=== PATIENT | male | born 1970 | race Caucasian/White ===

== ENCOUNTER → 2017-06-20 | Outpatient (CLI) | payer BC ==
[2017-06-20 10:45] LABS: Basophils % (A) 0 %; CH 31.5; CHCM 34.1; Eosinophils # (A) 0.2 k/uL (0-0.7); Eosinophils % (A) 5 %; HCT 42.5 % (39.0-53.0); HDW 2.57; HGB 14.1 gm/dL (13.0-17.5); Luc # (Auto) 0.11; Luc % (Auto) 3; Lymphocytes # (A) 1.4 k/uL (1.0-4.8); Lymphocytes % (A) 32 %; MCH 30.8 pg (25.0-35.0); MCHC 33.2 g/dL (31.0-37.0); MCV 92.7 fL (80.0-100.0); Mean Platelet Volume 6.5; Monocytes # (A) 0.2 k/uL (0-1.0); Monocytes % (A) 5 %; Neutrophils # (A) 2.5 k/uL (1.3-7.7); Neutrophils % (A) 55 %; RBC 4.59 m/uL (4.30-5.90); WBC 4.5 k/uL (3.8-10.6); WBC (Perox) 4.73
[2017-06-20 10:58] LABS: Rheumatoid Factor, Qnt <9 IU/mL (<12)
[2017-06-20 10:59] LABS: C Reactive Protein <5.0 mg/L (<10.0); Uric Acid 6.8 mg/dL (3.5-8.5)
[2017-06-20 13:56] LABS: Erythrocyte Sedimentation Rate 6 mm/hr (0-15)
== END | disposition home or self-care (01) ==
LOC: LABWHC1 10:02
PROVIDERS: ATTEND Podiatrist Foot & Ankle Surgery
DX: D64.9 Anemia, unspecified (principal); M19.90 Unspecified osteoarthritis, unspecified site
CPT/HCPCS: 36415; 84550; 85025; 85652; 86038; 86140; 86431

== ENCOUNTER → 2019-02-26 | Outpatient (CLI) | payer BC ==
--- NOTE | 2019-02-26 11:23 | ECHOS ---
STRESS ECHOCARDIOGRAM DATE OF SERVICE: 02/26/2019 INDICATIONS: Chest pain. MEDICATIONS: BASELINE HEART RATE: 73 BASELINE BLOOD PRESSURE: 123/53 MAXIMUM HEART RATE: 158 MAXIMUM BLOOD PRESSURE: 177/88 85% MPHR: 145 100% MPHR: 170 METS: 11.7 MAXIMUM STAGE REACHED: IV TOTAL EXERCISE TIME: 10 minutes CLINICAL INFORMATION: STRESS DATA: Heart rate is 73, pressure is 123/53 mmHg. Baseline EKG showed sinus mechanism. The patient exercised on the treadmill according to Constantine protocol for 10 minutes and achieved 11.7 METs. The max heart rate was 158 which is about 93% of maximum predicted heart rate. Maximum blood pressure was 177/88 mmHg. Clinically, he did not have any chest pain and the EKG did not show any . ECHOCARDIOGRAM IMAGES: From parasternal long axis view, parasternal short axis view, apical 4 chamber and apical 2 chamber view were obtained as the baseline images, at the peak of the heart rate as well as recovery and the echocardiogram images showed good augmentation in the left ventricular systolic function without any evidence of wall motion abnormalities concerning for ischemia. CONCLUSION: 1. Excellent exercise tolerance. 2. Normal EKG in response to exercise. 3. Normal echocardiogram in response to exercise. 4. Essentially normal stress test for the patient. MMODL / IJN: [id number] /
== END | disposition home or self-care (01) ==
LOC: RADNMMAIN 09:44
PROVIDERS: ATTEND Family Medicine
DX: R07.9 Chest pain, unspecified (principal)
CPT/HCPCS: 93351

== ENCOUNTER 2019-04-19 10:45 | Day surgery (SDC) | payer BC ==
[2019-04-15 12:38] VITALS: BMI 31.3
--- NOTE | 2019-04-19 07:08 | P.GSHP ---
History of Present Illness H&P Date: 04/19/19 CHIEF COMPLAINT: Colon screen HISTORY OF PRESENT ILLNESS: The patient is a 48-year-old male who presents for colon screen. Lower endoscopy was offered for further evaluation and management. PAST MEDICAL HISTORY: Please see list. PAST SURGICAL HISTORY: Please see list. MEDICATIONS: Please see list. ALLERGIES: Please see list. SOCIAL HISTORY: No illicit drug use FAMILY HISTORY: No reports of Crohn disease or ulcerative colitis. REVIEW OF ORGAN SYSTEMS: CONSTITUTIONAL: No reports of fevers or chills. PHYSICAL EXAM: VITAL SIGNS: Stable GENERAL: Well-developed pleasant in no acute distress. HEENT: No scleral icterus. Extraocular movements grossly intact. Moist buccal mucosa. NECK: Supple without lymphadenopathy. CHEST: Unlabored respirations. Equal bilateral excursions. CARDIOVASCULAR: Regular rate and rhythm. Distal 2+ pulses. ABDOMEN: Soft, nontender, nondistended. MUSCULOSKELETAL: No clubbing, cyanosis, or edema. ASSESSMENT: 1. Colon screen. PLAN: 1. Recommend proceeding with a lower endoscopy Past Medical History Past Medical History: Hyperlipidemia Additional Past Medical History / Comment(s): RUQ pain History of Any Multi-Drug Resistant Organisms: None Reported Past Surgical History: Cholecystectomy, Hernia Repair, Orthopedic Surgery Additional Past Surgical History / Comment(s): cyst removed from foot, birthmark removed from right forearm, LEFT ARM SURGERY, MULTIPLE COLONOSCOPIES SINCE AGE 32, Past Anesthesia/Blood Transfusion Reactions: No Reported Reaction Smoking Status: Never smoker - Past Family History Father Family Medical History: Cancer Additional Family Medical History / Comment(s): COLON CANCER Medications and Allergies Home Medications Medication Instructions Recorded Confirmed Type Aspirin 325 mg PO DAILY 03/06/15 04/15/19 History Fenofibrate Nanocrystallized 145 mg PO DAILY 03/06/15 04/15/19 History [Tricor] Cholecalciferol (Vitamin D3) 3,000 unit PO DAILY 04/15/19 04/15/19 History [Vitamin D3] Niacin (Inositol Niacinate) 500 mg PO DAILY 04/15/19 04/15/19 History [Niacin 500 mg Capsule] [place]-3 Fatty Acids/Fish Oil [Fish 1 each PO DAILY 04/15/19 04/15/19 History Oil 1,000 mg Softgel] Allergies Allergy/AdvReac Type Severity Reaction Status Date / Time erythromycin base Allergy Rash/Hives Verified 04/15/19 12:17 meperidine HCl [From Demerol] Allergy headache Verified 04/15/19 12:17
[~2019-04-19 10:45] MED LIST: LACTATED RINGERS 1,000 ML IV SCH; LIDOCAINE 1% 20 ML VIAL (10MG/ML) FOR IV START INTRADERMA PRN
[2019-04-19 11:24] VITALS: RESP 16; TEMP 97.9
[2019-04-19] MEDS ORDERED: PROPOFOL 10 MG/ML 20 ML VIAL IV ONE (11:27)
[2019-04-19] MEDS ORDERED: LIDOCAINE 1% INJ 10MG/ML (20 ML MDV) ONE (11:27)
--- NOTE | 2019-04-19 11:54 | P.PCN ---
Date of Procedure: 04/19/19 Description of Procedure: PREOPERATIVE DIAGNOSIS: Colonoscopy screening. Family history of colon cancer Personal history of colon polyp POSTOPERATIVE DIAGNOSIS: Colonoscopy screening. Family history of colon cancer Personal history of colon polyp Descending colon polyp OPERATION: Colonoscopy to the ileocecal valve and appendiceal orifice. Colonoscopy with cold forceps biopsy 50 cm from anal verge, descending colon SURGEON: Smiley Hanks MD. ANESTHESIA: MAC. INDICATIONS: The patient is a 48-year-old male who presents for colonoscopy screening. Last colonoscopy over 5 years ago. He has personal history of colon polyps and family history of colon cancer and high-risk. Benefits and risks were described and informed consent was obtained. DESCRIPTION OF PROCEDURE: The patient had undergone Suprep. He had been brought into the operating room and laid in the left lateral decubitus position. The prostate was unremarkable. After adequate intravenous sedation, the rectum was examined with 2% lidocaine jelly. No external hemorrhoids were encountered. The rectal tone was within normal limits. No lesions were palpated in the rectal vault. An Olympus colonoscope was advanced until the ileocecal valve and appendiceal orifice were clearly viewed. The prep was excellent with clear visualization of the mucosal folds. The scope was removed with visualization of each mucosal fold. No scattered diverticulosis was encountered. Flat hyperplastic polyp 4 mm was addressed with cold forceps biopsy at 50 cm from the anal verge, descending colon. No evidence of focal colitis was found. Retroflexion of the scope demonstrated grade 1 internal hemorrhoids without active bleeding or inflamm ation. The colon was desufflated. The patient had tolerated the procedure well. Withdrawal time was over 6 minutes. FINDINGS: Aronchick preparation quality scale 1 (1-5) Internal hemorrhoids, grade 1 No external prolapsed hemorrhoids. No arteriovenous malformations. No focal colitis. Flat hyperplastic polyp 4 mm was addressed with cold forceps biopsy at 50 cm from the anal verge, descending colon. RECOMMENDATIONS: Repeat colonoscopy 3 years, 2021 for higher risk history Plan - Discharge Summary Discharge Rx Participant: Yes New Discharge Prescriptions: No Action Fenofibrate Nanocrystallized [Tricor] 145 mg PO DAILY Aspirin 325 mg PO DAILY [place]-3 Fatty Acids/Fish Oil [Fish Oil 1,000 mg Softgel] 1 each PO DAILY Niacin (Inositol Niacinate) [Niacin 500 mg Capsule] 500 mg PO DAILY Cholecalciferol (Vitamin D3) [Vitamin D3] 3,000 unit PO DAILY Discharge Medication List Aspirin 325 mg PO DAILY 03/06/15 [History] Fenofibrate Nanocrystallized [Tricor] 145 mg PO DAILY 03/06/15 [History] Cholecalciferol (Vitamin D3) [Vitamin D3] 3,000 unit PO DAILY 04/15/19 [History] Niacin (Inositol Niacinate) [Niacin 500 mg Capsule] 500 mg PO DAILY 04/15/19 [History] [place]-3 Fatty Acids/Fish Oil [Fish Oil 1,000 mg Softgel] 1 each PO DAILY 04/15/19 [History] Follow up Appointment(s)/Referral(s): Smiley Hanks MD [STAFF PHYSICIAN] - As Needed Patient Instructions/Handouts: Colorectal Polyps (DC) Activity/Diet/Wound Care/Special Instructions: Repeat colonoscopy 3 years, 2021. Start aspirin and fish oil in 3 days, April 22 Discharge Disposition: HOME SELF-CARE
[2019-04-19 12:10] VITALS: BP 126/79; PULSE 62
== END 2019-04-19 12:24 | disposition home or self-care (01) ==
LOC: ORWHC2ENDO 10:45
PROVIDERS: ATTEND Surgery Plastic and Reconstructive Surgery
DX: Z12.11 Encounter for screening for malignant neoplasm of colon (principal); K52.9 Noninfective gastroenteritis and colitis, unspecified; E78.5 Hyperlipidemia, unspecified; K64.0 First degree hemorrhoids; Z90.49 Acquired absence of other specified parts of digestive tract; Z80.0 Family history of malignant neoplasm of digestive organs; Z79.82 Long term (current) use of aspirin; Z79.899 Other long term (current) drug therapy; Z88.1 Allergy status to other antibiotic agents; Z88.5 Allergy status to narcotic agent; Z86.010 Personal history of colon polyps
CPT/HCPCS: 45380; J2001; J2704; 88305

== ENCOUNTER → 2021-03-15 | Outpatient (CLI) | payer BC ==
--- NOTE | 2021-03-15 09:31 | XR ---
EXAMINATION TYPE: XR chest 2V DATE OF EXAM: 03/15/2021 COMPARISON: None HISTORY: 50-year-old male J40 TECHNIQUE: Frontal and lateral views FINDINGS: Heart normal size. Slight age related elongation thoracic aorta. Peribronchial and central interstiti al prominence there is some strandy atelectasis at the left base. No consolidation or pleural effusio n. IMPRESSION: Findings suggest bronchitis or chronic asthma. No focal infiltrate seen.
== END | disposition home or self-care (01) ==
LOC: RADXRMAIN 09:15
PROVIDERS: ATTEND Family Medicine
DX: J40 Bronchitis, not specified as acute or chronic (principal)
CPT/HCPCS: 71046

== ENCOUNTER 2021-03-21 13:57 | Observation (INO) | payer BC ==
[2021-03-21] MEDS ORDERED: ASPIRIN 81 MG PO STA (14:26)
[2021-03-21] MEDS ORDERED: NITROGLYCERIN OINT 1 INCH/GM PACKET TOPICAL STA (14:26)
--- NOTE | 2021-03-21 14:28 | ED ---
General Adult HPI - General Chief complaint: Chest Pain Stated complaint: Chest pain Time Seen by Provider: 03/21/21 14:05 Source: patient, RN notes reviewed Mode of arrival: wheelchair Limitations: no limitations - History of Present Illness Initial comments: Patient is a pleasant 50-year-old male presenting to the emergency Department with complaints of chest discomfort. Onset of symptoms was 2 days ago. Symptoms have been waxing and waning. No discomfort at this time. Discomfort feels like pressure in his chest. Patient at times has some minimal associated dyspnea. Patient was sweaty earlier today. No nausea. No history of similar symptoms previously. - Related Data Home Medications Medication Instructions Recorded Confirmed Aspirin 325 mg PO HS 03/06/15 03/21/21 Cholecalciferol (Vitamin D3) 3,000 unit PO DAILY 04/15/19 03/21/21 [Vitamin D3] Niacin (Inositol Niacinate) 500 mg PO HS 04/15/19 03/21/21 [Niacin 500 mg Capsule] [place]-3 Fatty Acids/Fish Oil [Fish 1 cap PO DAILY 04/15/19 03/21/21 Oil 1,000 mg Softgel] Albuterol Inhaler [Ventolin Hfa 2 puff INHALATION RT-Q4H PRN 03/21/21 03/21/21 Inhaler] Amoxic-Pot Clav 875-125Mg 1 tab PO Q12HR 03/21/21 03/21/21 [Augmentin 875-125] EPINEPHrine (Auto Inject) [Epipen] 0.3 mg IM ONCE PRN 03/21/21 03/21/21 Fluticasone Nasal [place] [Flonase 2 spr EA NOSTRIL DAILY 03/21/21 03/21/21 Nasal [place]] Glucosamine Sulfate 500 mg PO DAILY 03/21/21 03/21/21 Allergies Allergy/AdvReac Type Severity Reaction Status Date / Time erythromycin base Allergy Rash/Hives Verified 03/21/21 15:28 meperidine HCl [From Demerol] Allergy headache Verified 03/21/21 15:28 Review of Systems ROS Statement: Those systems with pertinent positive or pertinent negative responses have been documented in the HPI. ROS Other: All systems not noted in ROS Statement are negative. Constitutional: Denies: fever Eyes: Denies: eye pain ENT: Denies: ear pain Respiratory: Reports: as per HPI. Denies: cough Cardiovascular: Reports: as per HPI, chest pain Endocrine: Denies: fatigue Gastrointestinal: Denies: abdominal pain Genitourinary: Denies: urgency Skin: Denies: lesions Neurological: Denies: headache Past Medical History Past Medical History: Hyperlipidemia Additional Past Medical History / Comment(s): RUQ pain History of Any Multi-Drug Resistant Organisms: None Reported Past Surgical History: Cholecystectomy, Hernia Repair, Orthopedic Surgery Additional Past Surgical History / Comment(s): cyst removed from foot, birthmark removed from right forearm, LEFT ARM SURGERY, MULTIPLE COLONOSCOPIES SINCE AGE 32, Past Anesthesia/Blood Transfusion Reactions: No Reported Reaction Past Psychological History: Anxiety Smoking Status: Never smoker Past Alcohol Use History: Occasional Past Drug Use History: None Reported - Past Family History Father Family Medical History: Cancer Additional Family Medical History / Comment(s): COLON CANCER General Exam Limitations: no limitations General appearance: alert, in no apparent distress Head exam: Present: normocephalic Eye exam: Present: normal appearance Neck exam: Present: normal inspection Respiratory exam: Present: normal lung sounds bilaterally. Absent: chest wall tenderness Cardiovascular Exam: Present: regular rate, normal rhythm, normal heart sounds Expanded Peripheral pulses: 2+: Radial (R), Radial (L), Posterior Tibialis (R), Posterior Tibialis (L) GI/Abdominal exam: Present: soft. Absent: tenderness Extremities exam: Present: normal inspection. Absent: pedal edema, calf tenderness Neurological exam: Present: alert Psychiatric exam: Present: normal affect, normal mood Skin exam: Present: normal color Course Vital Signs 03/21/21 14:02 Temperature 98.5 F Pulse Rate 105 H Respiratory 18 Rate Blood Pressure 151/89 O2 Sat by Pulse 98 Oximetry EKG Findings - EKG Comments: EKG Findings:: Normal sinus rhythm with a rate of 82. MI 152. QRS 102. QT 362. QTC 422. Normal axis. Incomplete right bundle-branch block. No acute ST change. Medical Decision Making - Medical Decision Making Patient reevaluated and updated. Case was discussed with Baldev, practitioner with Dr. Holliday, who will admit. - Lab Data Result diagrams: 03/21/21 14:27 03/21/21 14:27 Lab Results 03/21/21 03/21/21 03/21/21 Range/Units 14:27 14:27 14:27 WBC 6.1 (3.8-10.6) k/uL RBC 4.69 (4.30-5.90) m/uL Hgb 14.3 (13.0-17.5) gm/dL Hct 41.9 (39.0-53.0) % MCV 89.3 (80.0-100.0) fL MCH 30.5 (25.0-35.0) pg MCHC 34.2 (31.0-37.0) g/dL RDW 11.8 (11.5-15.5) % Plt Count 348 (150-450) k/uL MPV 6.4 Neutrophils % 61 % Lymphocytes % 25 % Monocytes % 5 % Eosinophils % 8 % Basophils % 0 % Neutrophils # 3.7 (1.3-7.7) k/uL Lymphocytes # 1.5 (1.0-4.8) k/uL Monocytes # 0.3 (0-1.0) k/uL Eosinophils # 0.5 (0-0.7) k/uL Basophils # 0.0 (0-0.2) k/uL PT 9.8 (9.0-12.0) sec INR 0.9 (<1.2) APTT 23.7 (22.0-30.0) sec D-Dimer 0.20 (<0.60) mg/L FEU Sodium 138 (137-145) mmol/L Potassium 3.8 (3.5-5.1) mmol/L Chloride 101 (98-107) mmol/L Carbon Dioxide 27 (22-30) mmol/L Anion Gap 10 mmol/L BUN 17 (9-20) mg/dL Creatinine 0.92 (0.66-1.25) mg/dL Est GFR (CKD-EPI)AfAm >90 (>60 ml/min/1.73 sqM) Est GFR (CKD-EPI)NonAf >90 (>60 ml/min/1.73 sqM) Glucose 93 (74-99) mg/dL Calcium 10.0 (8.4-10.2) mg/dL Magnesium 1.7 (1.6-2.3) mg/dL Total Bilirubin 0.5 (0.2-1.3) mg/dL AST 29 (17-59) U/L ALT 22 (4-49) U/L Alkaline Phosphatase 65 (38-126) U/L Troponin I (0.000-0.034) ng/mL NT-Pro-B Natriuret Pep pg/mL Total Protein 7.4 (6.3-8.2) g/dL Albumin 4.7 (3.5-5.0) g/dL 03/21/21 03/21/21 Range/Units 14:27 14:27 WBC (3.8-10.6) k/uL RBC (4.30-5.90) m/uL Hgb (13.0-17.5) gm/dL Hct (39.0-53.0) % MCV (80.0-100.0) fL MCH (25.0-35.0) pg MCHC (31.0-37.0) g/dL RDW (11.5-15.5) % Plt Count (150-450) k/uL MPV Neutrophils % % Lymphocytes % % Monocytes % % Eosinophils % % Basophils % % Neutrophils # (1.3-7.7) k/uL Lymphocytes # (1.0-4.8) k/uL Monocytes # (0-1.0) k/uL Eosinophils # (0-0.7) k/uL Basophils # (0-0.2) k/uL PT (9.0-12.0) sec INR (<1.2) APTT (22.0-30.0) sec D-Dimer (<0.60) mg/L FEU Sodium (137-145) mmol/L Potassium (3.5-5.1) mmol/L Chloride (98-107) mmol/L Carbon Dioxide (22-30) mmol/L Anion Gap mmol/L BUN (9-20) mg/dL Creatinine (0.66-1.25) mg/dL Est GFR (CKD-EPI)AfAm (>60 ml/min/1.73 sqM) Est GFR (CKD-EPI)NonAf (>60 ml/min/1.73 sqM) Glucose (74-99) mg/dL Calcium (8.4-10.2) mg/dL Magnesium (1.6-2.3) mg/dL Total Bilirubin (0.2-1.3) mg/dL AST (17-59) U/L ALT (4-49) U/L Alkaline Phosphatase (38-126) U/L Troponin I <0.012 (0.000-0.034) ng/mL NT-Pro-B Natriuret Pep 20 pg/mL Total Protein (6.3-8.2) g/dL Albumin (3.5-5.0) g/dL - Radiology Data Radiology results: image reviewed (Chest x-ray reveals no acute process.) Disposition Clinical Impression: Chest pain Disposition: ADMITTED IP TO THIS HOSP Is patient prescribed a controlled substance at d/c from ED?: No Referrals: Eliel Holliday MD [Primary Care Provider] - 1-2 days Decision Time: 15:33
[2021-03-21 14:45] LABS: Basophils % (A) 0 %; Eosinophils # (A) 0.5 k/uL (0-0.7); Eosinophils % (A) 8 %; HCT 41.9 % (39.0-53.0); HGB 14.3 gm/dL (13.0-17.5); Lymphocytes # (A) 1.5 k/uL (1.0-4.8); Lymphocytes % (A) 25 %; MCH 30.5 pg (25.0-35.0); MCHC 34.2 g/dL (31.0-37.0); MCV 89.3 fL (80.0-100.0); Mean Platelet Volume 6.4; Monocytes # (A) 0.3 k/uL (0-1.0); Monocytes % (A) 5 %; Neutrophils # (A) 3.7 k/uL (1.3-7.7); Neutrophils % (A) 61 %; Platelet Count 348 k/uL (150-450); RBC 4.69 m/uL (4.30-5.90); RDW 11.8 % (11.5-15.5); WBC 6.1 k/uL (3.8-10.6)
[2021-03-21 14:52] LABS: ALT 22 U/L (4-49); AST 29 U/L (17-59); African American GFR (CKD) >90 (>60 ml/min/1.73 sqM); Albumin 4.7 g/dL (3.5-5.0); Alkaline Phosphatase 65 U/L (38-126); Anion Gap 10 mmol/L; Blood Urea Nitrogen 17 mg/dL (9-20); Carbon Dioxide 27 mmol/L (22-30); Chloride 101 mmol/L (98-107); Glucose 93 mg/dL (74-99); Magnesium 1.7 mg/dL (1.6-2.3); Non-African American GFR(CKD) >90 (>60 ml/min/1.73 sqM); Potassium 3.8 mmol/L (3.5-5.1); Sodium 138 mmol/L (137-145); Total Bilirubin 0.5 mg/dL (0.2-1.3); Total Protein 7.4 g/dL (6.3-8.2)
[2021-03-21 14:56] LABS: D-Dimer 0.2 mg/L FEU (<0.60); INR 0.9 (<1.2); Partial Thromboplastin Time 23.7 sec (22.0-30.0); Prothrombin Time 9.8 sec (9.0-12.0)
--- NOTE | 2021-03-21 14:57 | XR ---
EXAMINATION TYPE: XR chest 2V DATE OF EXAM: 03/21/2021 COMPARISON: 03/15/2021 INDICATION: Chest pain TECHNIQUE: Frontal and lateral views of the chest are obtained. FINDINGS: The heart size is normal. The pulmonary vasculature is normal. The lungs are clear. IMPRESSION: 1. No acute pulmonary process.
[2021-03-21] MEDS ORDERED: NITROGLYCERIN SL TABS 0.4 MG TAB SUBLINGUAL PRN (15:33)
[2021-03-21] MEDS ORDERED: ALBUTEROL NEBULIZED 2.5 MG/3 ML INHALATION PRN (16:01)
[2021-03-21] MEDS ORDERED: ACETAMINOPHEN TAB 500 MG TAB PO STA (17:21)
[2021-03-21] MEDS: NITROGLYCERIN OINT 1 INCH/GM PACKET TOPICAL SCH (18:10)
--- NOTE | 2021-03-21 20:40 | P.HPIM ---
History of Present Illness H&P Date: 03/21/21 Chief Complaint: Chest discomfort 50-year-old male was admitted to the hospital with complaint of chest discomfort for 2 day duration; patient states the pain comes and goes with associated tightness and mild shortness of breath. Patient additionally had an episode of sweatiness prior to arrival to the emergency department. Patient had extensive diagnostic workup in the emergency department revealing chest discomfort with unknown origin. Patient has significant medical history of hyperlipidemia, asthma, obesity, history of cholecystectomy, history of hernia repair, and orthopedic surgeries in the past. Upon evaluation of the patient's night, patient resting comfortably in bed with no complaints at this time. Patient states hasn't had chest discomfort since prior to coming to the emergency department. Echocardiogram ordered. Consult to cardiology for recommendations and treatment plan regarding chest discomfort. Review of Systems Constitutional: Reports as per HPI Ears, nose, mouth and throat: Reports as per HPI Cardiovascular: Reports chest pain, Reports decreased exercise tolerance, Reports shortness of breath Respiratory: Reports dyspnea Gastrointestinal: Reports as per HPI Genitourinary: Reports as per HPI Musculoskeletal: Reports as per HPI Integumentary: Reports as per HPI Neurological: Reports as per HPI Psychiatric: Reports as per HPI Endocrine: Reports as per HPI Hematologic/Lymphatic: Reports as per HPI Allergic/Immunologic: Reports as per HPI Past Medical History Past Medical History: Hyperlipidemia Additional Past Medical History / Comment(s): RUQ pain History of Any Multi-Drug Resistant Organisms: None Reported Past Surgical History: Cholecystectomy, Hernia Repair, Orthopedic Surgery Additional Past Surgical History / Comment(s): cyst removed from foot, birthmark removed from right forearm, LEFT ARM SURGERY, MULTIPLE COLONOSCOPIES SINCE AGE 32, Past Anesthesia/Blood Transfusion Reactions: No Reported Reaction Past Psychological History: Anxiety Smoking Status: Never smoker Past Alcohol Use History: Occasional Past Drug Use History: None Reported - Past Family History Father Family Medical History: Cancer Additional Family Medical History / Comment(s): COLON CANCER Medications and Allergies Home Medications and Allergies Comment(s): Medication and ALLERGIES reviewed Home Medications Medication Instructions Recorded Confirmed Type Aspirin 325 mg PO HS 03/06/15 03/21/21 History Cholecalciferol (Vitamin D3) 3,000 unit PO DAILY 04/15/19 03/21/21 History [Vitamin D3] Niacin (Inositol Niacinate) 500 mg PO HS 04/15/19 03/21/21 History [Niacin 500 mg Capsule] [place]-3 Fatty Acids/Fish Oil [Fish 1 cap PO DAILY 04/15/19 03/21/21 History Oil 1,000 mg Softgel] Albuterol Inhaler [Ventolin Hfa 2 puff INHALATION RT-Q4H PRN 03/21/21 03/21/21 History Inhaler] Amoxic-Pot Clav 875-125Mg 1 tab PO Q12HR 03/21/21 03/21/21 History [Augmentin 875-125] EPINEPHrine (Auto Inject) [Epipen] 0.3 mg IM ONCE PRN 03/21/21 03/21/21 History Fluticasone Nasal [place] [Flonase 2 spr EA NOSTRIL DAILY 03/21/21 03/21/21 History Nasal [place]] Glucosamine Sulfate 500 mg PO DAILY 03/21/21 03/21/21 History Allergies Allergy/AdvReac Type Severity Reaction Status Date / Time erythromycin base Allergy Rash/Hives Verified 03/21/21 15:28 meperidine HCl [From Demerol] Allergy headache Verified 03/21/21 15:28 Physical Exam Vitals: Vital Signs Temp Pulse Pulse Resp BP BP Pulse Ox 03/21/21 19:19 98.2 F 66 14 122/78 96 03/21/21 17:59 98.8 F 68 18 118/75 95 03/21/21 14:02 98.5 F 105 H 18 151/89 98 Intake and Output 03/21/21 03/21/21 03/21/21 06:59 14:59 22:59 Other: Weight 90.718 kg - Constitutional General appearance: cooperative - EENT Eyes: EOMI, PERRLA, normal appearance ENT: normal oropharynx Ears: bilateral: normal - Neck Neck: normal ROM Carotids: bilateral: upstroke normal Thyroid: bilateral: normal size - Respiratory Respiratory: bilateral: CTA (Anterior posterior lung rao) - Cardiovascular Sinus rhythm Heart rate: 74 Rhythm: regular Heart sounds: normal: S1, S2 radial pulse Peripheral Pulses: bilateral: Normal dorsalis pedis Peripheral Pulses: bilateral: Normal - Gastrointestinal General gastrointestinal: normal bowel sounds - Integumentary Integumentary: normal turgor - Neurologic Neurologic: CNII-XII intact - Musculoskeletal Musculoskeletal: gait normal - Psychiatric Psychiatric: A&O x's 3, appropriate affect, intact judgment & insight Results CBC & Chem 7: 03/21/21 14:27 03/21/21 14:27 Chest x-ray: report reviewed Thrombosis Risk Factor Assmnt - Choose All That Apply Each Factor Represents 1 point: Age 41-60 years Other Risk Factors: No Thrombosis Risk Factor Assessment Total Risk Factor Score: 1 Thrombosis Risk Factor Assessment Level: Low Risk Assessment and Plan Assessment: Chest discomfort Hyperlipidemia Asthma Obesity with a BMI of 31.3 History of cholecystectomy History of hernia repair History of orthopedic surgeries Full code Plan: Chest discomfort, continue to trend troponins, consultation with cardiology for recommendations and treatment plan Hyperlipidemia, continue home medications Continue to monitor vital signs and diagnostic testing Continue medical management Further recommendations to come based on patient's clinical condition Time with Patient: Greater than 30
[2021-03-21] MEDS ORDERED: NIACIN TR 500 MG CAPLET PO SCH (21:00)
[2021-03-22] MEDS: NITROGLYCERIN OINT 1 INCH/GM PACKET TOPICAL SCH ×2 (00:06→06:08)
[2021-03-22 07:33] VITALS: BP 117/76; PULSE 67; RESP 16; TEMP 98.5
[2021-03-22] MEDS ORDERED: NON FORMULARY DRUG (Glucosamine Sulfate 500 MG Cap) PO SCH (09:00)
[2021-03-22] MEDS ORDERED: CHOLECALCIFEROL 25 MCG (1000 IU) TABLET PO SCH (09:00)
[2021-03-22] MEDS ORDERED: FLUTICASONE 50MCG/SPRAY NASAL 16GM EA NOSTRIL SCH (09:00)
[2021-03-22] MEDS ORDERED: NON FORMULARY DRUG (Omega-3 Fatty Acids/Fish Oil [Fish Oil 1,000 Mg Softgel] 1 EACH Capsul PO SCH (09:00)
[2021-03-22] MEDS ORDERED: ASPIRIN 325 MG TAB PO SCH (09:00)
--- NOTE | 2021-03-22 10:17 | P.CRDCN ---
History of Present Illness History of present illness: HISTORY OF PRESENTING ILLNESS This is a pleasant 50-year-old male past medical history significant for hyperlipidemia. He does not follow with a analytics specialist. We have been asked to see in consultation for chest pain Patient is seen and examined at bedside, lying flat in bed, no acute distress. He states that he's been having left- sided chest pain and shortness of breath. Specifically since Friday he's been having on and off left-sided chest tightness and shortness of breath. This rogelio st tightness is nonexertional, nonradiating. He does state that he did start to have left-sided chest pain even at rest when he was at work. 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 Prompt him to go to the emergency department was having increased shortness of breath, he felt like he had labored breathing and could not catch his breath. He did have one episode of diaphoresis prior to arrival to emerge ncy department. He denies palpitations, weakness, lightheadedness, syncope, nausea. No specific aggravating or alleviating factors. He is currently chest pain-free. He denies symptoms of orthopnea or PND. He denies history of diabetes, hypertension, [place], stroke. He states he's had borderline high cholesterol. He denies family history of cardiac disease. He is a nonsmoker. DIAGNOSTICS EKG reveals sinus rhythm, heart rate 82, nonspecific STT wave abnormalities. EKG this morning was sinus rhythm, heart rate 61, no significant STT wave abnormalities. Most recent stress test was an outpatient stress echocardiogram in 02/2019 which was normal Telemetry tracings indicate sinus mechanism, heart rate 60-70s. Chest xray no acute cardiopulmonary process. Laboratory reviewed, CBC unremarkable, d-dimer negative, troponin negative 3, proBNP 20, sodium 138, potassium 3.8, BUN 17, serum creatinine 0.92, magnesium 1.7, COVID-19 negative REVIEW OF SYSTEMS At the time of my exam: CONSTITUTIONAL: Denies fever or chills. CARDIOVASCULAR: positive chest pain, positive shortness of breath Denies orthopnea, PND or palpitations. RESPIRATORY: Denies cough. GASTROINTESTINAL: Denies abdominal pain, diarrhea, constipation, nausea or vomiting. MUSCULOSKELETAL: Denies myalgias. NEUROLOGIC: Denies numbness, tingling, headacbe or weakness. ENDOCRINE: Denies fatigue, weight change, polydipsia or polyurina. GENITOURINARY: Denies burning, hematuria or urgency with micturation. HEMATOLOGIC: Denies history of anemia or bleeding. PHYSICAL EXAMINATION Blood pressure 117/66 heart rate 67 afebrile and maintaining oxygen saturation 96% on room air CONSTITUTIONAL: No apparent distress. HEENT: Head is normocephalic. Pupils are equal, round. Sclerae anicteric. Mucous membranes of the mouth are moist. No JVD. No carotid bruit. CHEST EXAMINATION: Lungs are clear to auscultation. No chest wall tenderness is noted on palpation or with deep breathing. HEART EXAMINATION: Regular rate and rhythm. S1, S2 heard. No murmurs, gallops or rub. ABDOMEN: Soft, nontender. Positive bowel sounds. EXTREMITIES: 2+ peripheral pulses, no lower extremity edema and no calf tenderness. SKIN: intact NEUROLOGIC EXAMINATION: Patient is awake, alert and oriented x3. ASSESSMENT Chest pain, atypical, acute coronary syndrome has been ruled out History of hyperlipidemia PLAN An acute coronary event has been ruled out with no EKG evidence of ischemia and negative cardiac enzymes. Obtain 2D echocardiogram and doppler study to assess cardiac structure and function. Perform stress echo test to assess for stress induced cardiac ischemia. From a cardiology perspective. If stress echocardiogram is normal and no acute findings on echocardiogram, ok to discharge patient Thank you kindly for this consultation. Nurse Practitioner note has been reviewed, I agree with a documented findings and plan of care. Patient was seen and examined. Past Medical History Past Medical History: Hyperlipidemia Additional Past Medical History / Comment(s): RUQ pain History of Any Multi-Drug Resistant Organisms: None Reported Past Surgical History: Cholecystectomy, Hernia Repair, Orthopedic Surgery Additional Past Surgical History / Comment(s): cyst removed from foot, birthmark removed from right forearm, LEFT ARM SURGERY, MULTIPLE COLONOSCOPIES SINCE AGE 32, Past Anesthesia/Blood Transfusion Reactions: No Reported Reaction Past Psychological History: Anxiety Smoking Status: Never smoker Past Alcohol Use History: Occasional Past Drug Use History: None Reported - Past Family History Father Family Medical History: Cancer Additional Family Medical History / Comment(s): COLON CANCER Medications and Allergies Home Medications Medication Instructions Recorded Confirmed Type Aspirin 325 mg PO HS 03/06/15 03/21/21 History Cholecalciferol (Vitamin D3) 3,000 unit PO DAILY 04/15/19 03/21/21 History [Vitamin D3] Niacin (Inositol Niacinate) 500 mg PO HS 04/15/19 03/21/21 History [Niacin 500 mg Capsule] [place]-3 Fatty Acids/Fish Oil [Fish 1 cap PO DAILY 04/15/19 03/21/21 History Oil 1,000 mg Softgel] Albuterol Inhaler [Ventolin Hfa 2 puff INHALATION RT-Q4H PRN 03/21/21 03/21/21 History Inhaler] Amoxic-Pot Clav 875-125Mg 1 tab PO Q12HR 03/21/21 03/21/21 History [Augmentin 875-125] EPINEPHrine (Auto Inject) [Epipen] 0.3 mg IM ONCE PRN 03/21/21 03/21/21 History Fluticasone Nasal Model [Flonase 2 spr EA NOSTRIL DAILY 03/21/21 03/21/21 History Nasal Model] Glucosamine Sulfate 500 mg PO DAILY 03/21/21 03/21/21 History Allergies Allergy/AdvReac Type Severity Reaction Status Date / Time erythromycin base Allergy Rash/Hives Verified 03/21/21 15:28 meperidine HCl [From Demerol] Allergy headache Verified 03/21/21 15:28 Physical Exam Vitals: Vital Signs Temp Pulse Pulse Resp BP BP Pulse Ox 03/22/21 07:10 98.5 F 67 16 117/76 92 L 03/22/21 01:57 66 14 03/22/21 01:49 98.4 F 62 14 108/66 96 03/21/21 20:31 66 14 03/21/21 19:19 98.2 F 66 14 122/78 96 03/21/21 17:59 98.8 F 68 18 118/75 95 03/21/21 14:02 98.5 F 105 H 18 151/89 98 Intake and Output 03/21/21 03/22/21 03/22/21 22:59 06:59 14:59 Other: Voiding Method Toilet Toilet # Voids 1 2 Weight 90.718 kg Results 03/21/21 14:27 03/21/21 14:27 Cardiac Enzymes 03/21/21 03/21/21 03/21/21 Range/Units 14:27 14:27 16:02 AST 29 (17-59) U/L Troponin I <0.012 <0.012 (0.000-0.034) ng/mL 03/21/21 Range/Units 18:58 AST (17-59) U/L Troponin I <0.012 (0.000-0.034) ng/mL Coagulation 03/21/21 Range/Units 14:27 PT 9.8 (9.0-12.0) sec APTT 23.7 (22.0-30.0) sec CBC 03/21/21 Range/Units 14:27 WBC 6.1 (3.8-10.6) k/uL RBC 4.69 (4.30-5.90) m/uL Hgb 14.3 (13.0-17.5) gm/dL Hct 41.9 (39.0-53.0) % Plt Count 348 (150-450) k/uL Comprehensive Metabolic Panel 03/21/21 Range/Units 14:27 Sodium 138 (137-145) mmol/L Potassium 3.8 (3.5-5.1) mmol/L Chloride 101 (98-107) mmol/L Carbon Dioxide 27 (22-30) mmol/L BUN 17 (9-20) mg/dL Creatinine 0.92 (0.66-1.25) mg/dL Glucose 93 (74-99) mg/dL Calcium 10.0 (8.4-10.2) mg/dL AST 29 (17-59) U/L ALT 22 (4-49) U/L Alkaline Phosphatase 65 (38-126) U/L Total Protein 7.4 (6.3-8.2) g/dL Albumin 4.7 (3.5-5.0) g/dL Current Medications Generic Name Dose Route Start Last Admin Trade Name Freq PRN Reason Stop Dose Admin Albuterol Sulfate 2.5 mg 03/21/21 16:01 Albuterol Nebulized 2.5 Mg/3 Ml INHALATION RT-Q4H PRN Shortness Of Breath Aspirin 325 mg 03/22/21 09:00 Aspirin 325 Mg Tab PO DAILY TENZIN Cholecalciferol 75 mcg 03/22/21 09:00 Cholecalciferol 25 Mcg (1000 Iu) Tablet PO DAILY TENZIN Fluticasone Propionate 2 spray 03/22/21 09:00 Fluticasone 50mcg/Model Nasal 16gm EA NOSTRIL DAILY TENZIN Niacin 500 mg 03/21/21 21:00 03/21/21 20:31 Niacin Tr 500 Mg Caplet PO 500 mg HS TENZIN Administration Nitroglycerin 0.4 mg 03/21/21 15:33 Nitroglycerin Sl Tabs 0.4 Mg Tab SUBLINGUAL Q5M PRN Chest Pain Nitroglycerin 1 inch 03/21/21 18:00 03/22/21 06:08 Nitroglycerin Oint 1 Inch/Gm Packet TOPICAL Not Given Q6HR TENZIN Non-Formulary Medication 500 mg 03/22/21 09:00 Glucosamine Sulfate PO DAILY TENZIN Non-Formulary Medication 1 cap 03/22/21 09:00 [place]-3 Fatty Acids/Fish Oil [Fish Oil 1,000 Mg Softgel] PO DAILY TENZIN Sodium Chloride 10 ml 03/21/21 21:00 03/21/21 20:31 Sodium Chloride 0.9% Flush 10 Ml Syringe IV 10 ml BID TENZIN Administration Intake and Output 03/21/21 03/22/21 03/22/21 22:59 06:59 14:59 Other: Voiding Method Toilet Toilet # Voids 1 2 Weight 90.718 kg 03/21/21 14:27 03/21/21 14:27
--- NOTE | 2021-03-22 11:06 | ECHOF ---
Referral Reason:chest pain MEASUREMENTS -------- HEIGHT: 170.2 cm WEIGHT: 90.7 kg BP: 133/84 RVIDd: 3.6 cm (< 3.3) IVSd: 1.1 cm (0.6 - 1.1) LVIDd: 4.3 cm (3.9 - 5.3) LVPWd: 1.1 cm (0.6 - 1.1) IVSs: 1.6 cm LVIDs: 2.8 cm LVPWs: 1.6 cm LA Diam: 3.7 cm (2.7 - 3.8) LAESV Index (A-L): 23.60 ml/m Ao Diam: 3.7 cm (2.0 - 3.7) AV Cusp: 2.4 cm (1.5 - 2.6) MV EXCURSION: 13.644 mm (> 18.000) MV EF SLOPE: 65 mm/s (70 - 150) EPSS: 0.4 cm MV E Pillo: 0.71 m/s MV DecT: 166 ms MV A Pillo: 0.81 m/s MV E/A Ratio: 0.87 RAP: 5.00 mmHg RVSP: 27.65 mmHg FINDINGS -------- Sinus rhythm. This was a technically good study. The left ventricular size is normal. There is borderline concentric left ventricular hypertrophy. Overall left ventricular systolic function is normal with, an EF between 60 - 65 %. The right ventricle is mildly enlarged. Normal LA size by volume 22+/-6 ml/m2. The right atrium is normal in size. Interatrial and interventricular septum intact. The aortic valve is trileaflet, and appears structurally normal. No aortic stenosis or regurgitation. The mitral valve is normal. Mild tricuspid regurgitation present. Right ventricular systolic pressure is normal at < 35 mmHg. There is no pulmonic regurgitation present. The aortic root size is normal. Normal inferior vena cava with normal inspiratory collapse consistent with estimated right atrial pre ssure of 5 mmHg. There is no pericardial effusion. CONCLUSIONS -------- 1. The left ventricular size is normal. 2. There is borderline concentric left ventricular hypertrophy. 3. Overall left ventricular systolic function is normal with, an EF between 60 - 65 %. 4. The right ventricle is mildly enlarged. 5. The aortic valve is trileaflet, and appears structurally normal. No aortic stenosis or regurgitati on. 6. Mild tricuspid regurgitation present. 7. There is no pericardial effusion. ROLLWAY WORKER: Adri Carrero RDCS
--- NOTE | 2021-03-22 11:18 | P.STRESS ---
- Stress Test Note Stress Test Results/Findings: Exam Performed: stress echo exercise Exam Date: 03/22/21 Reason for Exam: CHEST PAIN Height: 5 ft 7 in Weight: 90.72 kg Protocol: STRESS ECHO Stage: 3 Duration of Exercise: 10:16 Resting Heart Rate: 66 Resting Blood Pressure: 133/84 Maximum Achieved Heart Rate: 160 Maximum Achieved Blood Pressure: 153/91 85% PMHR: 143 100% PMHR: 168 METS: 11.9 Technologist Comment: Stress Test Results/Findings: This is a 50-year-old gentleman with history of of diabetes hypercholesterolemia was admitted to the hospital with complaints of chest pain. EKGs and cardiac enzymes are negative. Stress data: Baseline EKG showed sinus rhythm with tall when necessary 20 aspiration. Blood pressure at rest is 133/84 with pulse rate of 66. Patient walked on the [place] protocol for 10 minutes and 16 seconds achieving a maximal heart rate of 160 with blood pressure 146/85. EKGs taken during and after exer cise did not reveal any changes of ischemia. Patient did not experience any chest pain. Echo data: Baseline echo images showed normal wall motion and thickening. Exercise echo images showed augmentation of wall motion and thickening in all segments. Final impression: #1. Negative stress test #2. Negative stress echo.
[2021-03-22 11:51] LABS: Chol/HDL Ratio 3.81; LDL Cholesterol,Calculated 135.2 mg/dL (0.0-131.0); VLDL Calculation 41.8 mg/dL (5.00-40.00)
--- NOTE | 2021-03-23 07:07 | P.DS ---
Providers Date of admission: 03/21/21 15:34 Expected date of discharge: 03/22/21 Attending physician: Eliel Holliday Consults: 03/21/21 15:33 Consult Physician Urgent Consulting Provider: Matteo Wiggins Consult Reason/Comments: cp Do you want consulting provider notified?: Yes Primary care physician: Eliel Holliday Hospital Course: 50-year-old male was admitted to the hospital with complaint of chest discomfort for 2 day duration; patient states the pain comes and goes with associated tightness and mild shortness of breath. Patient additionally had an episode of sweatiness prior to arrival to the emergency department. Patient had extensive diagnostic workup in the emergency department revealing chest discomfort with unknown origin. Patient has significant medical history of hyperlipidemia, asthma, obesity, history of cholecystectomy, history of hernia repair, and orthopedic surgeries in the past. Patient was evaluated by cardiology with echocardiogram and stress tests, dictation from cardiology for echocardiogram and stress tests echocardiogram normal ejection fraction of 55- 60%, negative stress echo. Troponins negative 3. Chest x-ray no acute car diopulmonary abnormalities noted. Patient will have further diagnostic testing for asthma on outpatient basis with a pulmonary function test, possibly related to atypical chest pain. Patient tolerated hospital stay well with no acute episodes. - Constitutional General appearance: cooperative - EENT Eyes: EOMI, PERRLA, normal appearance ENT: normal oropharynx Ears: bilateral: normal - Neck Neck: normal ROM Carotids: bilateral: upstroke normal Thyroid: bilateral: normal size - Respiratory Respiratory: bilateral: CTA (Anterior posterior lung rao) - Cardiovascular Sinus rhythm Heart rate: 74 Rhythm: regular Heart sounds: normal: S1, S2 radial pulse Peripheral Pulses: bilateral: Normal dorsalis pedis Peripheral Pulses: bilateral: Normal - Gastrointestinal General gastrointestinal: normal bowel sounds - Integumentary Integumentary: normal turgor - Neurologic Neurologic: CNII-XII intact - Musculoskeletal Musculoskeletal: gait normal - Psychiatric Psychiatric: A&O x's 3, appropriate affect, intact judgment & insight Assessment: Chest discomfort, acute coronary syndrome ruled out Hyperlipidemia, continue home medications Asthma, further diagnostic testing outpatient basis Obesity with a BMI of 31.3 History of cholecystectomy History of hernia repair History of orthopedic surgeries Full code Health Concerns: None noted Pertinent Studies: Echocardiogram Stress test Procedures: No procedures performed Patient Condition at Discharge: Stable Plan - Discharge Summary Discharge Rx Participant: No New Discharge Prescriptions: Continue Aspirin 325 mg PO HS [place]-3 Fatty Acids/Fish Oil [Fish Oil 1,000 mg Softgel] 1 cap PO DAILY Niacin (Inositol Niacinate) [Niacin 500 mg Capsule] 500 mg PO HS Cholecalciferol (Vitamin D3) [Vitamin D3] 3,000 unit PO DAILY Fluticasone Nasal [place] [Flonase Nasal Ferron] 2 spr EA NOSTRIL DAILY Albuterol Inhaler [Ventolin Hfa Inhaler] 2 puff INHALATION RT-Q4H PRN PRN Reason: Shortness Of Breath EPINEPHrine (Auto Inject) [Epipen] 0.3 mg IM ONCE PRN PRN Reason: Anaphylaxis Glucosamine Sulfate 500 mg PO DAILY Discontinued Amoxic-Pot Clav 875-125Mg [Augmentin 875-125] 1 tab PO Q12HR Discharge Medication List Aspirin 325 mg PO HS 03/06/15 [History] Cholecalciferol (Vitamin D3) [Vitamin D3] 3,000 unit PO DAILY 04/15/19 [History] Niacin (Inositol Niacinate) [Niacin 500 mg Capsule] 500 mg PO HS 04/15/19 [History] [place]-3 Fatty Acids/Fish Oil [Fish Oil 1,000 mg Softgel] 1 cap PO DAILY 04/15/19 [History] Albuterol Inhaler [Ventolin Hfa Inhaler] 2 puff INHALATION RT-Q4H PRN 03/21/21 [History] EPINEPHrine (Auto Inject) [Epipen] 0.3 mg IM ONCE PRN 03/21/21 [History] Fluticasone Nasal [place] [Flonase Nasal Ferron] 2 spr EA NOSTRIL DAILY 03/21/21 [History] Glucosamine Sulfate 500 mg PO DAILY 03/21/21 [History] Follow up Appointment(s)/Referral(s): Eliel Holliday MD [Primary Care Provider] - 1-2 days (See SATURNINO De Paz or Dr. Holliday by next friday at the office) Patient Instructions/Handouts: Chest Pain (GEN) Discharge Disposition: HOME SELF-CARE
--- NOTE | 2021-03-23 09:20 | ECHOS ---
Stress Test Results/Findings: Exam Performed: stress echo exercise Exam Date: 03/22/21 Reason for Exam: CHEST PAIN Height: 5 ft 7 in Weight: 90.72 kg Protocol: STRESS ECHO Stage: 3 Duration of Exercise: 10:16 Resting Heart Rate: 66 Resting Blood Pressure: 133/84 Maximum Achieved Heart Rate: 160 Maximum Achieved Blood Pressure: 153/91 85% PMHR: 143 100% PMHR: 168 METS: 11.9 Technologist Comment: Stress Test Results/Findings: This is a 50-year-old gentleman with history of of diabetes hypercholesterolemia was admitted to the hospital with complaints of chest pain. EKGs and cardiac enzymes are negative. Stress data: Baseline EKG showed sinus rhythm with tall when necessary 20 aspiration. Blood pressure at rest is 133/84 with pulse rate of 66. Patient walked on the [place] protocol for 10 minutes and 16 seconds achieving a maximal heart rate of 160 with blood pressure 146/85. EKGs taken during and after exercise did not reveal any changes of ischemia. Patient did not experience any chest pain. Echo data: Baseline echo images showed normal wall motion and thickening. Exercise echo images showed augmentation of wall motion and thickening in all segments. Final impression: #1. Negative stress test #2. Negative stress echo. BERNADINE
== END 2021-03-22 14:04 | disposition home or self-care (01) ==
LOC: EC 13:57 → 6NMEDSUR 15:34
PROVIDERS: ADMIT Family Medicine; ATTEND Family Medicine
DX: R07.89 Other chest pain (principal); J45.909 Unspecified asthma, uncomplicated; E78.5 Hyperlipidemia, unspecified; E66.9 Obesity, unspecified; Z68.31 Body mass index [BMI] 31.0-31.9, adult; R61 Generalized hyperhidrosis; F41.9 Anxiety disorder, unspecified; Z20.822 Contact with and (suspected) exposure to COVID-19; Z79.82 Long term (current) use of aspirin; Z79.899 Other long term (current) drug therapy; Z88.1 Allergy status to other antibiotic agents; Z88.5 Allergy status to narcotic agent; Z90.49 Acquired absence of other specified parts of digestive tract; Z98.890 Other specified postprocedural states; Z80.0 Family history of malignant neoplasm of digestive organs
CPT/HCPCS: 93005 ×2; 99285; 36415; 93306; 93351; 85379; 83880; 80061; 80053; 83735; 84484; 85025; 85610; 85730; 87635; 71046; G0378 ×2

== ENCOUNTER 2022-04-16 20:52 | Emergency (ER) | payer BC ==
[2022-04-16] MEDS ORDERED: SODIUM CHLORIDE 0.9% 1,000 ML IV STA (20:59)
[2022-04-16] MEDS ORDERED: RX INFO: IV CONTRAST WAS GIVEN 1 EACH MISC MISCELLANE PRN (21:00)
[2022-04-16] MEDS ORDERED: MORPHINE SULFATE 4 MG/ML SYRINGE IVP STA (21:01)
[2022-04-16 21:07] VITALS: BP 120/78; PULSE 72; RESP 16; TEMP 99.2
[2022-04-16 21:20] LABS: Basophils % (A) 0 %; Eosinophils # (A) 0.2 k/uL (0-0.7); Eosinophils % (A) 5 %; HCT 39.9 % (39.0-53.0); HGB 13.7 gm/dL (13.0-17.5); Lymphocytes # (A) 1.7 k/uL (1.0-4.8); Lymphocytes % (A) 34 %; MCH 31.8 pg (25.0-35.0); MCHC 34.3 g/dL (31.0-37.0); MCV 92.7 fL (80.0-100.0); Mean Platelet Volume 6.7; Monocytes # (A) 0.3 k/uL (0-1.0); Monocytes % (A) 7 %; Neutrophils # (A) 2.5 k/uL (1.3-7.7); Neutrophils % (A) 52 %; Platelet Count 312 k/uL (150-450); WBC 4.9 k/uL (3.8-10.6)
[2022-04-16 21:29] LABS: Prothrombin Time 10.5 sec (9.0-12.0)
[2022-04-16 21:31] LABS: ALT 17 U/L (4-49); AST 22 U/L (17-59); African American GFR (CKD) >90 (>60 ml/min/1.73 sqM); Albumin 3.9 g/dL (3.5-5.0); Alcohol <10 mg/dL; Alkaline Phosphatase 51 U/L (38-126); Anion Gap 5 mmol/L; Blood Urea Nitrogen 16 mg/dL (9-20); Calcium 8.5 mg/dL (8.4-10.2); Carbon Dioxide 28 mmol/L (22-30); Chloride 103 mmol/L (98-107); Glucose 79 mg/dL (74-99); Non-African American GFR(CKD) >90 (>60 ml/min/1.73 sqM); Potassium 3.6 mmol/L (3.5-5.1); Sodium 136 mmol/L (137-145); Total Bilirubin 0.4 mg/dL (0.2-1.3); Total Protein 6.3 g/dL (6.3-8.2)
--- NOTE | 2022-04-16 21:47 | XR ---
EXAMINATION TYPE: XR wrist complete LT DATE OF EXAM: 04/16/2022 9:39 PM INDICATION: Patient age:Male; 51 years old; Reason for study: pain, fall; PHH. COMPARISON: Left TECHNIQUE: 4 views of the left wrist. Frontal, navicular, lateral, and oblique. FINDINGS: No acute osseous pathology, joint dislocation, or joint effusion. No evidence of any soft tissue swelling is seen. IMPRESSION: No acute osseous pathology.
--- NOTE | 2022-04-16 21:48 | XR ---
EXAMINATION TYPE: XR chest 1V portable DATE OF EXAM: 04/16/2022 9:42 PM COMPARISON: Chest radiographs from 03/21/2021 TECHNIQUE: XR chest 1V portable Frontal view of the chest. CLINICAL INDICATION:Male, 51 years old with history of trauma; FINDINGS: Lungs/Pleura: There is no evidence of pleural effusion, focal consolidation, or pneumothorax. Pulmonary vascularity: Unremarkable. Heart/mediastinum: Cardiomediastinal silhouette is unremarkable. Musculoskeletal: No acute osseous pathology. IMPRESSION: No acute cardiopulmonary disease/process.
--- NOTE | 2022-04-16 22:02 | XR ---
EXAMINATION TYPE: XR pelvis AP view DATE OF EXAM: 04/16/2022 9:45 PM INDICATION: Patient age:Male; 51 years old; Reason for study: Trauma; COMPARISON: None TECHNIQUE: The pelvis was examined in a single projection. FINDINGS: Mild osteophytes of the hips. There is no evidence of fracture or dislocation. There is no soft tissue abnormality. No abnormal calcifications are present. Multilevel degenerative changes of the lower spine. IMPRESSION: 1. No acute osseous pathology. 2. Mild hip osteoarthrosis.
--- NOTE | 2022-04-16 22:05 | ED ---
General Adult HPI - General Chief complaint: Fall Stated complaint: Right knee injury Time Seen by Provider: 04/16/22 20:52 Source: patient, RN notes reviewed, old records reviewed Mode of arrival: EMS Limitations: no limitations - History of Present Illness Initial comments: Patient is a 51-year-old male who presents emergency Department after a fall. Patient's dog ran into the front of his right leg and tripped him. Patient's dog ran into his right leg. Patient states that he felt a popping sensation in his right knee and he went down. Was unable to ambulate. Denies hitting his head, loss consciousness. Does endorse drinking 2 beers this evening with [place]. Denies any other drug use. Has no other acute complaints at this time. Is not on blood thinners. Denies any other injuries except for some left wrist pain. Denies any sensory deficits. Can move his ankle and toes on the right, however has difficulty moving his knee due to pain. Presents for further evaluation at this time. - Related Data Home Medications Medication Instructions Recorded Confirmed Aspirin 325 mg PO HS 03/06/15 04/16/22 Niacin (Inositol Niacinate) 500 mg PO HS 04/15/19 04/16/22 [Niacin 500 mg Capsule] [place]hope-3 Fatty Acids/Fish Oil [Fish 1 cap PO DAILY 04/15/19 04/16/22 Oil 1,000 mg Softgel] Fluticasone Nasal Ulm [Flonase 1 spr EA NOSTRIL DAILY 03/21/21 04/16/22 Nasal Ulm] Cetirizine HCl 10 mg PO HS 04/16/22 04/16/22 Cholecalciferol [Vitamin D3 (25 50 mcg PO DAILY 04/16/22 04/16/22 Mcg = 1000 Iu)] Fenofibrate Nanocrystallized 145 mg PO DAILY 04/16/22 04/16/22 [Fenofibrate] Glucosam/Ananda-Msm1/C/Rufino/Bosw 2 tab PO DAILY 04/16/22 04/16/22 [Glucosamine-Chondroitin Tablet] Allergies Allergy/AdvReac Type Severity Reaction Status Date / Time erythromycin base Allergy Rash/Hives Verified 04/16/22 23:29 meperidine HCl [From Demerol] Allergy headache Verified 04/16/22 23:29 Review of Systems ROS Statement: Those systems with pertinent positive or pertinent negative responses have been documented in the HPI. Review of Systems: CONST: Denies fever EYES: Denies blurry vision ENT: Denies nasal congestion C/V: Denies Chest pain RESP: Denies shortness of breath GI: Denies abdominal pain : Denies dysuria SKIN: Denies rash. MSK: Endorses joint pain NEURO: Denies headache ROS Other: All systems not noted in ROS Statement are negative. Past Medical History Past Medical History: Hyperlipidemia Additional Past Medical History / Comment(s): RUQ pain History of Any Multi-Drug Resistant Organisms: None Reported Past Surgical History: Cholecystectomy, Hernia Repair, Orthopedic Surgery Additional Past Surgical History / Comment(s): cyst removed from foot, birthmark removed from right forearm, LEFT ARM SURGERY, MULTIPLE COLONOSCOPIES SINCE AGE 32, Past Anesthesia/Blood Transfusion Reactions: No Reported Reaction Past Psychological History: No Psychological Hx Reported, Anxiety Smoking Status: Never smoker Past Alcohol Use History: Occasional Past Drug Use History: None Reported - Past Family History Father Family Medical History: Cancer Additional Family Medical History / Comment(s): COLON CANCER General Exam - General Exam Comments Initial Comments: General: Appears in moderate distress secondary to right knee pain. HEAD: Normal with no signs of head trauma. EYES: PERRLA, EOMI, conjunctiva normal, no discharge. ENT: Hearing grossly intact, normal oropharynx. RESPIRATORY: Clear breath sounds bilaterally. No wheezes, rales, or rhonchi. C/V: Regular rate and rhythm. S1 and S2 auscultated, no edema, peripheral pulses 2+ and intact throughout ABD: Abd is soft, nontender, nondistended EXT: Reduced range of motion of the right knee secondary to pain. Held in a flexed position. Refusing to extend it secondary to pain. There is tenderness to palpation along the joint line as well as anterior right knee. Neurovascularly intact distal to the right knee. No obvious pain in the posterior right knee. All leg Compartments soft. Left wrist is tender to palpation over the posterior medial aspect. No snuffbox tenderness. Normal range of motion. Good strength. Pelvis stable. No spinal tenderness to palpation. SKIN: No rashes or lesions observed on exposed skin. NEURO: Alert and oriented x 4. Cranial nerves II-XII intact. No focal sensory or strength deficits. Limitations: no limitations Course Vital Signs 04/16/22 20:57 Temperature 99.2 F Pulse Rate 72 Respiratory 16 Rate Blood Pressure 120/78 O2 Sat by Pulse 97 Oximetry Medical Decision Making - Medical Decision Making This on the patient's presentation and physical exam, I'm concerned for him to the patient's right knee. We will obtain a CT of the patient's right knee as well as x-rays of the left wrist, pelvis, chest. We'll obtain basic labs. Patient was in agreement this plan. Will be given a fluid bolus as well as started on IV analgesia. CT with contrast will be obtained injury history is concerning for possible posterior dislocation versus knee fracture or injury. Laboratory studies were unremarkable. Chest x-ray and pelvic x-ray shows no acute fracture or subluxation. Left wrist x-ray is negative for fracture or subluxation. CT angiogram of the right lower extremity shows findings concerning for comminuted tibial plateau fracture as well as proximal fibular fracture. Tib-fib x-ray was obtained and revealed similar findings. Nothing obvious distal tib-fib. There was concern for lack of contrast distal to the mid tibia in the arteries, however this is likely secondary to timing as the patient's exam does not support this. He has soft compartments, good 2+ pulses in the DP and PT arteries, no skin changes. No concern for extravasation of contrast. This is likely timing aspect. No injury to the popliteal vasculature appreciated. I updated the patient on results of his imaging. He expressed understanding. I spoke with our orthopedic surgeon on-call, Dr. Grant who requested the patient be transferred due to the tibial plateau fracture. I spoke with the patient and he was in agreement this plan. Patient will be transferred to [facility]. I spoke with Dr. Jenkins with ortho and Dr. Villaseñor is in the ER who both accepted the patient. I updated them on the imaging. Images will be forwarded to their PACS machine. Patient will be transferred and stable condition. We did discuss his the patient's leg is in a slightly flexed position at they are okay with this for transport, and per Dr. Jenkins as long as the patient is no signs of compartment syndrome which he does not, and has no change on exam than this is appropriate. I did discuss at length with the patient signs of compartment syndrome and to update us and any changes in how his leg feels and he was in agreement with the plan.Patient will be transferred via ambulance in stable condition. - Lab Data Result diagrams: 04/16/22 21:09 04/16/22 21:09 Lab Results 04/16/22 04/16/22 04/16/22 Range/Units 21:09 21:09 21:09 WBC 4.9 (3.8-10.6) k/uL RBC 4.30 (4.30-5.90) m/uL Hgb 13.7 (13.0-17.5) gm/dL Hct 39.9 (39.0-53.0) % MCV 92.7 (80.0-100.0) fL MCH 31.8 (25.0-35.0) pg MCHC 34.3 (31.0-37.0) g/dL RDW 12.0 (11.5-15.5) % Plt Count 312 (150-450) k/uL MPV 6.7 Neutrophils % 52 % Lymphocytes % 34 % Monocytes % 7 % Eosinophils % 5 % Basophils % 0 % Neutrophils # 2.5 (1.3-7.7) k/uL Lymphocytes # 1.7 (1.0-4.8) k/uL Monocytes # 0.3 (0-1.0) k/uL Eosinophils # 0.2 (0-0.7) k/uL Basophils # 0.0 (0-0.2) k/uL PT 10.5 (9.0-12.0) sec INR 1.0 (<1.2) APTT 24.0 (22.0-30.0) sec Sodium 136 L (137-145) mmol/L Potassium 3.6 (3.5-5.1) mmol/L Chloride 103 (98-107) mmol/L Carbon Dioxide 28 (22-30) mmol/L Anion Gap 5 mmol/L BUN 16 (9-20) mg/dL Creatinine 0.91 (0.66-1.25) mg/dL Est GFR (CKD-EPI)AfAm >90 (>60 ml/min/1.73 sqM) Est GFR (CKD-EPI)NonAf >90 (>60 ml/min/1.73 sqM) Glucose 79 (74-99) mg/dL Calcium 8.5 (8.4-10.2) mg/dL Total Bilirubin 0.4 (0.2-1.3) mg/dL AST 22 (17-59) U/L ALT 17 (4-49) U/L Alkaline Phosphatase 51 (38-126) U/L Total Protein 6.3 (6.3-8.2) g/dL Albumin 3.9 (3.5-5.0) g/dL Serum Alcohol <10 mg/dL Blood Type Blood Type Recheck Bld Type Recheck Status Antibody Screen Spec Expiration Date 04/16/22 Range/Units 22:41 WBC (3.8-10.6) k/uL RBC (4.30-5.90) m/uL Hgb (13.0-17.5) gm/dL Hct (39.0-53.0) % MCV (80.0-100.0) fL MCH (25.0-35.0) pg MCHC (31.0-37.0) g/dL RDW (11.5-15.5) % Plt Count (150-450) k/uL MPV Neutrophils % % Lymphocytes % % Monocytes % % Eosinophils % % Basophils % % Neutrophils # (1.3-7.7) k/uL Lymphocytes # (1.0-4.8) k/uL Monocytes # (0-1.0) k/uL Eosinophils # (0-0.7) k/uL Basophils # (0-0.2) k/uL PT (9.0-12.0) sec INR (<1.2) APTT (22.0-30.0) sec Sodium (137-145) mmol/L Potassium (3.5-5.1) mmol/L Chloride (98-107) mmol/L Carbon Dioxide (22-30) mmol/L Anion Gap mmol/L BUN (9-20) mg/dL Creatinine (0.66-1.25) mg/dL Est GFR (CKD-EPI)AfAm (>60 ml/min/1.73 sqM) Est GFR (CKD-EPI)NonAf (>60 ml/min/1.73 sqM) Glucose (74-99) mg/dL Calcium (8.4-10.2) mg/dL Total Bilirubin (0.2-1.3) mg/dL AST (17-59) U/L ALT (4-49) U/L Alkaline Phosphatase (38-126) U/L Total Protein (6.3-8.2) g/dL Albumin (3.5-5.0) g/dL Serum Alcohol mg/dL Blood Type A Negative Blood Type Recheck No Previous Record Bld Type Recheck Status CABO Indicated Antibody Screen NEGATIVE Spec Expiration Date 04/19/20222340 Critical Care Time Critical Care Time: Yes Total Critical Care Time: 35 Critical Care Time: Upon my evaluation, this patient had a high probability of imminent or life- threatening deterioration due to fall, tibial plateau fracture, fibula fracture, transfer, which required my direct attention, intervention, and personal management. I have personally provided 35 minutes of critical care time exclusive of time spent on separately billable procedures. Time includes review of laboratory data, radiology results, discussion with consultants, and monitoring for potential decompensation. Interventions were performed as documented in my note. Disposition Clinical Impression: Tibial plateau fracture, right, Right fibular fracture, Fall Disposition: OTHER INSTITUTION NOT DEFINED Condition: Stable Referrals: Eliel Holliday MD [Primary Care Provider] - 1-2 days Time of Disposition: 23:55 - Out of Hospital Transfer - Req. Specs Out of Hospital Transfer - Requested Specifics: Other Emergency Center (Transferred for escalation of care to higher level of trauma facility for tibial plateau fracture.)
--- NOTE | 2022-04-16 23:28 | CT ---
EXAMINATION TYPE: CT angio lower extremity RT DATE OF EXAM: 04/16/2022 COMPARISON: HISTORY: rt knee injury. pt unable to straighten leg out CT DLP: 700.7 mGycm Automated exposure control for dose reduction was used. CONTRAST: Performed with IV Contrast, patient injected with 100 mL of Isovue 370. Images obtained from the proximal femur to the lower tibia with IV contrast. There are Three-D postpr ocessed images. There is arterial contrast opacification of the right femoral artery and the popliteal artery. No fredi dence of aneurysm or dissection. No evidence of hemodynamic stenosis. There is arterial flow in the p rofunda femoris artery. There is very low density contrast in the tibial artery and tibial artery tri furcation. No significant flow seen in the anterior and posterior tibial arteries of the mid calf. Th is comminuted fracture noted of the proximal tibia. There is fracture of the fibula head. No contrast extravasation. No significant soft tissue edema. IMPRESSION: No contrast seen draining degree in the tibial artery branches. It is not clear if this is related to the stenosis or timing of the exam. No evidence of hemodynamic stenosis. Comminuted fracture of the proximal tibia. Knee joint effusion. Fibular head fracture. No evidence of contrast extravasation. No evidence of a hematoma.
[2022-04-17 00:14] LABS: Amphetamine Screen,Urine Not Detected (NotDetected); Barbiturate Screen,Urine Not Detected (NotDetected); Benzodiazepines Screen,Urine Not Detected (NotDetected); Cocaine Screen,Urine Not Detected (NotDetected); Methadone Screen, Urine Not Detected (NotDetected); Opiate Screen,Urine Detected (NotDetected); Oxycodone Screen, Urine Not Detected (NotDetected); Phencyclidine Screen,Urine Not Detected (NotDetected); Tricyclic Antidepressant,Urine Not Detected (NotDetected); Urn Cannabinoid Scrn Not Detected (NotDetected)
[2022-04-17] MEDS ORDERED: MORPHINE SULFATE 4 MG/ML SYRINGE IVP PRN (00:14)
--- NOTE | 2022-04-17 00:29 | XR ---
EXAMINATION TYPE: XR tibia fibula RT DATE OF EXAM: 04/17/2022 COMPARISON: NONE HISTORY: Trauma. Pain TECHNIQUE: 4 views FINDINGS: There is comminuted intra-articular fracture of the proximal tibia. Fracture line extends t hrough the tibial spines. There is nondisplaced fracture of the head of the fibula. The ankle mortise appears anatomic. There is small plantar calcaneal spur. There is knee joint effusion. The distal fe mur appears intact. IMPRESSION: Acute fractures of the proximal tibia and fibula as above. Knee joint effusion. No dislocation. IMPRESSION:
== END 2022-04-17 01:17 | disposition other institution (70) ==
LOC: EC 20:52
DX: S82.831A Other fracture of upper and lower end of right fibula, initial encounter for closed fracture (principal); S82.141A Displaced bicondylar fracture of right tibia, initial encounter for closed fracture; E78.5 Hyperlipidemia, unspecified; Z88.8 Allergy status to other drugs, medicaments and biological substances; Z88.2 Allergy status to sulfonamides; Z79.82 Long term (current) use of aspirin; Z79.899 Other long term (current) drug therapy; W01.0XXA Fall on same level from slipping, tripping and stumbling without subsequent striking against object, initial encounter; Y93.89 Activity, other specified
CPT/HCPCS: 36415; 86900; 86901; 80053; 85025; 85610; 85730; 86850; 80306; 80320; 72170; 73110; 71045; 73706; 99291; 96374; 96361 ×2; J2270; Q9967